=== PATIENT | female | born 1960 | race Caucasian/White ===

== ENCOUNTER 2018-10-31 13:51 | Emergency (ER) | payer BC, OTHER ==
[~2018-10-31] VITALS: Ht 165.1 cm; Wt 77.1 kg
[~2018-10-31 13:51] MED LIST: CYCLOBENZAPRINE10 MG; ESCITALOPRAM OX10 MG; HYDROCODON-ACE1 EAC9
--- NOTE | 2018-10-31 16:28 | Diagnostic Imaging Report ---
ADDENDUM #1 In the impression under "cervical spine", the following should read: No cervical spine fracture or acute subluxation. Signed by: Dr. Kike Vang M.D. on 10/31/2018 4:31 PM ORIGINAL REPORT Exams: Head, maxillofacial and cervical spine CTs without IV contrast History: Trauma, pain Comparison studies:None Technique: Axial images were obtained from the brain, face and cervical spine. Coronal and sagittal intracranial, maxillofacial and cervical reconstructions obtained from the axial data. Intravenous contrast: None Findings: Head CT: Scalp: No abnormalities. Bones: Intact. No fractures. No blastic or lytic lesions. Brain sulci: Appropriate for patient's age. Ventricles: Normal in size and configuration. No hydrocephalus. Parenchyma: No abnormal densities. No masses, acute hemorrhage, acute or chronic vascular insults. Suprasellar region: No abnormalities. Craniocervical junction: The foramen magnum is patent. No Chiari one malformation. Maxillofacial CT: Soft tissues: Right periorbital soft tissue swelling. No retained hyperdense foreign body identified. Bones: No fractures or bony abnormalities. Orbits: Globes and lenses are intact. No retrobulbar hematoma. No retained intraorbital hyperdense foreign body identified. Paranasal sinuses: Right anterior ethmoids are partially opacified mucosal thickening. Remaining sinuses are clear. Cervical spine CT: Atlantoaxial articulation: Intact Alignment: Straightened cervical curvature may be positional. Minimal retrolisthesis of C5 on C6 is most likely degenerative in etiology. Cervicomedullary junction: No abnormalities. The foramen magnum is patent. Soft tissues: No gross acute abnormalities. Vertebrae: Normal height and density. No fractures, neoplasm or infection. Degenerative changes: Moderately degenerated C5-C6 disc with disc osteophyte complex which indents the thecal sac but does not result in significant canal stenosis. Multilevel facet arthrosis. Mild foraminal stenosis on the left at C3-C4 moderate foraminal stenosis bilaterally at C5-C6 due to uncovertebral facet arthrosis. Included lung apices: Mild chronic scarring bilaterally. IMPRESSION: Head CT: No acute abnormalities. Facial CT: 1. Right periorbital soft tissue swelling. 2. No CT evidence of globe injury. No retained hyperdense foreign body identified. Cervical spine CT: 1. No cervical spine fracture or subluxation. 2. Multilevel degenerative changes as described. 3. Please note, ligament, spinal cord and or vascular abnormalities cannot be excluded on the basis of this examination. Signed by: Dr. Kike Vang M.D. on 10/31/2018 4:24 PM
== END 2018-10-31 17:30 | disposition home or self-care (01) ==
LOC: ER 13:51
DX: S01.111A Laceration without foreign body of right eyelid and periocular area, initial encounter (principal); S00.11XA Contusion of right eyelid and periocular area, initial encounter; S00.211A Abrasion of right eyelid and periocular area, initial encounter; Y04.0XXA Assault by unarmed brawl or fight, initial encounter; Y92.008 Other place in unspecified non-institutional (private) residence as the place of occurrence of the external cause
CPT/HCPCS: 70450; 70486; 72125; 99283